=== PATIENT | male | born 1975 | race Caucasian/White ===

== ENCOUNTER 2021-03-12 22:21 | Emergency (ER) | payer MEDICAID ==
[~2021-03-12] VITALS: Ht 172.7 cm; Wt 99.0 kg
[2021-03-12 22:25] VITALS: BP 135/89
[2021-03-12 22:55] LABS: CLARITY,URINE CLOUDY (Clear); COLOR,URINE YELLOW (Yellow); GLUCOSE, URINE NEGATIVE (Neg); KETONES,URINE NEGATIVE (Neg); LEUKOCYTE ESTERASE ,URINE TRACE (Neg); NITRITES, URINE NEGATIVE (Neg); OCCULT BLOOD,URINE SMALL (Neg); PH,URINE 5.5 (4.8-8.0); PROTEIN,URINE TRACE mg/dl (Neg); UROBILINOGEN,URINE 0.2 E.U/dL (0.2-1.0)
[2021-03-12 23:01] LABS: UA COLLECTION TYPE CLN CATCH MIDSTREAM
[2021-03-12 23:03] LABS: WBC CLUMPS,URINE MODERATE /HPF (NEGATIVE)
[2021-03-12 23:04] LABS: SQUAMOUS EPITHELIAL CELL,UR FEW /LPF (FEW)
[2021-03-12 23:05] LABS: MUCUS STRANDS FEW /LPF (Neg)
[2021-03-12 23:06] LABS: BACTERIA,URINE NONE SEEN /HPF (Neg)
[2021-03-12 23:07] LABS: RBC,URINE 0-2 /HPF (0-2); WBC,URINE TNTC /HPF (0-4)
[2021-03-13] MEDS ORDERED: DOXYCYCLINE 100MG CAPSULE PO STA (03:32)
[2021-03-13] MEDS ORDERED: CefTRIAXone 1000mg IM Kit (w/lidocaine diluent) IM ONE (03:35)
[2021-03-13] MEDS ORDERED: CefTRIAXone 500MG IM Kit w/LIDOcaine IM ONE (03:35)
[2021-03-13] MEDS ORDERED: DOXY-11 PO (03:36)
== END 2021-03-13 03:58 | disposition home or self-care (01) ==
LOC: ER 22:21
DX: R30.0 Dysuria (principal); F15.90 Other stimulant use, unspecified, uncomplicated; Z86.19 Personal history of other infectious and parasitic diseases
CPT/HCPCS: 81001; 87088; 96372; 99283; J0696

== ENCOUNTER 2022-01-07 20:29 | Emergency (ER) | payer MEDICAID ==
[~2022-01-07] VITALS: Ht 172.7 cm; Wt 100.0 kg
[2022-01-07] MEDS ORDERED: normal saline 1000ml 1,000 ML IV ONE (21:50)
[2022-01-07] MEDS ORDERED: ketorolac trometh. 30mg/ml inj. IV ONE (21:50)
[2022-01-07] MEDS ORDERED: clindamycin 600mg/D5W 50ml 50 ML IV ONE (21:50)
[2022-01-07] MEDS ORDERED: DOXYCYCLINE 100MG CAPSULE PO STA (23:28)
[2022-01-07] MEDS ORDERED: ibuprofen tablet 400 MG TABLET PO ONE (23:30)
[2022-01-07] MEDS ORDERED: ondansetron 4mg rapidly disintigrating tab PO ONE (23:30)
[2022-01-07] MEDS ORDERED: cephalexin 250mg capsule PO ONE (23:30)
--- NOTE | 2022-01-08 00:08 | NUR ---
multiple attempts made by 4 RN's to start PIV without success. Ultrasound used unsuccessful. Dr. Walsh made aware, IV antibiotics cancelled and PO meds given.
[2022-01-08 00:10] VITALS: BP 166/95
[2022-01-08] MEDS ORDERED: CEPH250T PO (00:18)
[2022-01-08] MEDS ORDERED: DOXY100C76 PO (00:18)
[2022-01-08] MEDS ORDERED: ONDA8TAB13 PO (00:18)
[2022-01-08] MEDS ORDERED: bacitracin 15gm ointment TP ONE (00:25)
== END 2022-01-08 01:38 | disposition home or self-care (01) ==
LOC: ER 20:29
DX: K13.0 Diseases of lips (principal); F15.90 Other stimulant use, unspecified, uncomplicated; Z86.19 Personal history of other infectious and parasitic diseases; Z79.2 Long term (current) use of antibiotics; Z79.899 Other long term (current) drug therapy
CPT/HCPCS: 10060; 99284; J7030; A6449

== ENCOUNTER 2022-06-09 15:11 | Emergency (ER) | payer MEDICAID ==
[~2022-06-09] VITALS: Ht 175.3 cm; Wt 95.5 kg
[~2022-06-09 15:11] MED LIST: ONDA8TAB13 PO
[2022-06-09] MEDS ORDERED: normal saline 1000ML IV soln IVB ONE (15:40)
[2022-06-09 15:49] LABS: MONOCYTES # (AUTO) 0.3 X10'3 (0-0.9)
[2022-06-09 15:50] LABS: BASOPHILS # (AUTO) 0.1 X10'3 (0-0.2); EOSINOPHILS % (AUTO) 0.3 % (0-6); NEUTROPHILS % (AUTO) 76.5 % (42-75); RED CELL DISTRIBUTION WIDTH 12.8 % (11.5-14.5)
[2022-06-09 15:55] LABS: BASOPHILS % (AUTO) 0.8 % (0-1); HEMATOCRIT 47.4 % (42.0-52.0); HEMOGLOBIN 16.1 g/dl (14.0-17.9); LYMPHOCYTES # (AUTO) 1.5 X10'3 (1.1-4.8); MEAN CORPUSCULAR HEMOGLOBIN 29.1 PG (27.0-31.0); MEAN CORPUSCULAR HGB CONC 34.1 g/dL (33.0-36.5); MEAN CORPUSCULAR VOLUME 85.2 FL (78-98); MEAN PLATELET VOLUME 7.4 FL (7.4-10.4); MONOCYTES % (AUTO) 3.4 % (2-12); NEUTROPHILS # (AUTO) 6.2 X10'3 (1.8-7.7); PLATELET COUNT 284 X10'3 (140-440); RED BLOOD COUNT 5.56 X10'6 (4.70-6.10); WHITE BLOOD COUNT 8.2 X10'3 (4.5-11.0)
[2022-06-09] MEDS ORDERED: LORazepam 2 mg/ml vial IV ONE (16:10)
[2022-06-09] MEDS ORDERED: ketorolac trometh. 30mg/ml inj. IV ONE (16:10)
[2022-06-09 16:25] LABS: ALANINE AMINOTRANSFERASE 33 U/L (12-78); ALBUMIN 4.3 G/DL (3.4-5.0); ALBUMIN/GLOBULIN RATIO 0.9 (1.1-1.5); ALKALINE PHOSPHATASE 113 IU/L (46-116); ANION GAP 13 (8-16); ASPARTATE AMINO TRANSFERASE 31 U/L (10-37); BILIRUBIN,TOTAL 0.5 MG/DL (0.1-1.0); BLOOD UREA NITROGEN 21 MG/DL (7-18); BUN/CREATININE RATIO 19.6 (10.0-20.0); CALCIUM 10.6 MG/DL (8.5-10.1); CHLORIDE 101 MMOL/L (99-107); CREATININE 1.07 MG/DL (0.60-1.10); ETHANOL < 0.010 GM/DL (0.0-0.010); GLUCOSE 105 MG/DL (70-104); LIPASE 62 U/L (73-393); MAGNESIUM 2.1 MG/DL (1.5-2.4); POTASSIUM 3.7 MMOL/L (3.5-5.1); SODIUM 142 MMOL/L (135-145); TOTAL PROTEIN 9.2 G/DL (6.4-8.2); eGFR 75 ML/MIN
[2022-06-09] MEDS ORDERED: dicyclomine 10mg/ml 2ml ampule IM ONE (16:50)
[2022-06-09] MEDS ORDERED: DICY10CA14 PO (17:17)
[2022-06-09] MEDS ORDERED: OMEP20TA43 PO (17:17)
[2022-06-09 17:24] LABS: APTT 25 SECONDS (22-32)
[2022-06-09 17:42] VITALS: BP 129/81
== END 2022-06-09 17:44 | disposition home or self-care (01) ==
LOC: ER 15:12
DX: F11.29 Opioid dependence with unspecified opioid-induced disorder (principal); R10.13 Epigastric pain; F15.20 Other stimulant dependence, uncomplicated
CPT/HCPCS: 36415; 71045; 76700; 80053; 80320; 83690; 83735; 84484; 85025; 85610; 85730; 93005; 96361; 96372; 96374; 99285; J0500; J1885; J7030